=== PATIENT | male | born 1970 | race Caucasian/White ===

== ENCOUNTER 2017-03-01 21:45 | Emergency (ER) | payer MEDICARE, SELFPAY ==
[2017-03-01 21:58] VITALS: BP 160/102
--- NOTE | 2017-03-01 22:37 | EDM.PDOC ---
ED HPI GENERAL MEDICAL PROBLEM - General Chief Complaint: Upper Extremity Injury/Pain Stated Complaint: UNABLE TO SLEEP Time Seen by Provider: 03/01/17 22:10 Source of Information: Reports: Patient History Limitations: Reports: No Limitations - History of Present Illness INITIAL COMMENTS - FREE TEXT/NARRATIVE: 46-year-old male with a left shoulder injury, injured it twice in the last 5 days and is having significant discomfort. He is leaving for the [place] tomorrow morning for the next 5-10 days while his has important surgical procedure and he has a lot of anxiety and is having difficulty sleeping. He still has full range of motion of the shoulder but is very painful and difficult to raise the shoulder above 90. No symptoms going down the arm into the elbow or wrist. No bruising or deformity. Location: Reports: Upper Extremity, Left Severity: Mild Associated Symptoms: Reports: Other (Worsening anxiety) left shoulder Pain Score (Numeric/FACES): 3 - Related Data Allergies Allergy/AdvReac Type Severity Reaction Status Date / Time ibuprofen Allergy Abdominal Verified 03/01/17 21:56 Pain naproxen Allergy heart Verified 03/01/17 21:56 palpitations *all muscle relaxers Allergy makes Uncoded 03/01/17 21:56 mental illness worse Home Meds: Home Meds Lisinopril [Lisinopril] 20 mg PO DAILY 03/15/13 [History] Testosterone [Androgel] 75 mg TOP DAILY 03/15/13 [History] Zolpidem [Ambien] 5 mg PO BEDTIME 03/15/13 [History] amLODIPine Besylate [Amlodipine Besylate] 5 mg PO DAILY 03/15/13 [History] ALPRAZolam [Xanax] 1 mg PO QID 03/05/14 [History] Gemfibrozil [Lopid] 600 mg PO BID 03/05/14 [History] Dextroamphetamine/Amphetamine [Adderall 10 mg Tablet] 10 mg PO DAILY 03/01/17 [ History] Empagliflozin [Jardiance] 25 mg PO DAILY 03/01/17 [History] Past Medical History Other HEENT History: cornea abrasion Cardiovascular History: Reports: High Cholesterol, Hypertension Musculoskeletal History: Reports: Arthritis, Back Pain, Chronic Other Musculoskeletal History: 2002 power lifting hurt back- appt with pain in [place] on time. Psychiatric History: Reports: Anxiety, Panic Attack, Schizophrenia Other Psychiatric History: once used pain meds to medicate uncontrolled pyschophrenia but since on meds haven;t done that. Endocrine/Metabolic History: Reports: Diabetes, Type II Other Endocrine/Metabolic History: arthritis Social & Family History - Tobacco Use Smoking Status *Q: Current Every Day Smoker Years of Tobacco use: 25 Packs/Tins Daily: 0.2 Used Tobacco, but Quit: Yes Month Tobacco Last Used: 1998 Second Hand Smoke Exposure: No - Caffeine Use Caffeine Use: Reports: Coffee - Alcohol Use Days Per Week of Alcohol Use: 0 Number of Drinks Per Day: 5 Total Drinks Per Week: 0 - Recreational Drug Use Recreational Drug Use: No Recreational Drug Type: Reports: Other (see below) Recreational Drug Use Frequency: Not Used In Over 6 Months Recreational Drug Last Use: 2010 Review of Systems - Review of Systems Review Of Systems: See Below Constitutional: Denies: Fever Mouth/Throat: Reports: No Symptoms Respiratory: Denies: Shortness of Breath, Cough Cardiovascular: Denies: Chest Pain GI/Abdominal: Denies: Abdominal Pain Musculoskeletal: Reports: Shoulder Pain Skin: Reports: No Symptoms Psychiatric: Reports: Anxiety, Other (Insomnia) ED EXAM, GENERAL - Physical Exam Exam: See Below Exam Limited By: No Limitations General Appearance: Alert, No Apparent Distress, Anxious Neck: Normal Inspection Respiratory/Chest: No Respiratory Distress, Lungs Clear Extremities: Other (Very tender to palpation along the anterior glenoid rim of the shoulder and to the subclavian area. He does have full active range of motion but significant tenderness when abducting past 90. There is some apprehension with rotation of the shoulder passively) Course - Vital Signs Last Recorded V/S: Last Vital Signs Temp 97.0 F 03/01/17 22:02 Pulse 101 H 03/01/17 22:02 Resp 16 03/01/17 22:02 BP 160/102 H 03/01/17 22:02 Pulse Ox 97 03/01/17 22:02 - Re-Assessments/Exams Free Text/Narrative Re-Assessment/Exam: 03/01/17 22:36 Shoulder x-ray is not needed at this time since the patient is leaving tomorrow morning and likely will be normal but he was given 10 hydrocodone for extra pain control and will recheck when home if his symptoms are still bothering him. I told him it's important to rest the shoulder and refrain from weight lifting or stressing the shoulder for the next 1-2 weeks. Departure - Departure Time of Disposition: 22:45 Disposition: Home, Self-Care 01 Condition: Good Clinical Impression: Strain of shoulder, left Qualifiers: Encounter type: initial encounter Qualified Code(s): S46.912A - Strain of unspecified muscle, fascia and tendon at shoulder and upper arm level, left arm , initial encounter - Discharge Information Instructions: Shoulder Pain, [id number] Referrals: Florida Guerra PA [Primary Care Provider] - Forms: ED Department Discharge Care Plan Goals: Rest the shoulder for the next 1-2 weeks, increasing activity slowly and as tolerated. Recheck when you return home if not improving satisfactorily. Use medications as prescribed if needed.
== END 2017-03-01 22:45 | disposition home or self-care (01) ==
LOC: JP.ED 21:45
DX: S46.912A Strain of unspecified muscle, fascia and tendon at shoulder and upper arm level, left arm, initial encounter (principal); I10 Essential (primary) hypertension; E78.00 Pure hypercholesterolemia, unspecified; F41.9 Anxiety disorder, unspecified; F41.0 Panic disorder [episodic paroxysmal anxiety]; E11.9 Type 2 diabetes mellitus without complications; F17.210 Nicotine dependence, cigarettes, uncomplicated; Z79.84 Long term (current) use of oral hypoglycemic drugs; Z79.899 Other long term (current) drug therapy; Z88.6 Allergy status to analgesic agent; Z88.8 Allergy status to other drugs, medicaments and biological substances; X58.XXXA Exposure to other specified factors, initial encounter
CPT/HCPCS: 99283

== ENCOUNTER 2017-05-20 09:58 | Emergency (ER) | payer MEDICARE, OTHER, SELFPAY ==
[2017-05-20 10:27] VITALS: BP 133/88
[2017-05-20] MEDS ORDERED: Triamcinolone Acetonide 40 MG/ML 1 ML MDV IM ONE (10:45)
[2017-05-20] MEDS ORDERED: Acetaminophen/oxyCODONE 325-5 MG Tab PO ONE (10:46)
--- NOTE | 2017-05-20 10:54 | EDM.PDOC ---
ED HPI GENERAL MEDICAL PROBLEM - General Chief Complaint: Lower Extremity Injury/Pain Stated Complaint: HURT LT SHOULDER Time Seen by Provider: 05/20/17 10:45 Source of Information: Reports: Patient History Limitations: Reports: No Limitations - History of Present Illness INITIAL COMMENTS - FREE TEXT/NARRATIVE: pt was breaking up ice yesterday and he reinjured his left shoulder. He has been seeing Yodit Guerra and has had an Mri on the shoulder with does how a torn labrum and evidence of tendonitis. Onset: Gradual, Other (pt chopped ice yesterday and he reinjured his left shoulder. ) Duration: Hour(s): Location: Reports: Upper Extremity, Left Associated Symptoms: Reports: Other (pt is scheduled for a procedure on his veins. ) - Related Data Allergies Allergy/AdvReac Type Severity Reaction Status Date / Time ibuprofen Allergy Abdominal Verified 03/01/17 21:56 Pain naproxen Allergy heart Verified 03/01/17 21:56 palpitations *all muscle relaxers Allergy makes Uncoded 03/01/17 21:56 mental illness worse Home Meds: Home Meds Lisinopril [Lisinopril] 20 mg PO DAILY 03/15/13 [History] Testosterone [Androgel] 75 mg TOP DAILY 03/15/13 [History] Zolpidem [Ambien] 5 mg PO BEDTIME 03/15/13 [History] amLODIPine Besylate [Amlodipine Besylate] 5 mg PO DAILY 03/15/13 [History] ALPRAZolam [Xanax] 1 mg PO QID 03/05/14 [History] Gemfibrozil [Lopid] 600 mg PO BID 03/05/14 [History] Dextroamphetamine/Amphetamine [Adderall 10 mg Tablet] 10 mg PO DAILY 03/01/17 [ History] Empagliflozin [Jardiance] 25 mg PO DAILY 03/01/17 [History] Past Medical History Other HEENT History: cornea abrasion Cardiovascular History: Reports: High Cholesterol, Hypertension Musculoskeletal History: Reports: Arthritis, Back Pain, Chronic Other Musculoskeletal History: 2002 power lifting hurt back- appt with pain in [place] on time. Psychiatric History: Reports: Anxiety, Panic Attack, Schizophrenia Other Psychiatric History: once used pain meds to medicate uncontrolled pyschophrenia but since on meds haven;t done that. Endocrine/Metabolic History: Reports: Diabetes, Type II Other Endocrine/Metabolic History: arthritis - Past Surgical History Musculoskeletal Surgical History: Reports: Other (See Below) Other Musculoskeletal Surgeries/Procedures:: tendonits of left shoulder Social & Family History - Tobacco Use Smoking Status *Q: Former Smoker Years of Tobacco use: 30 Packs/Tins Daily: 0.2 Used Tobacco, but Quit: Yes Month Tobacco Last Used: february Second Hand Smoke Exposure: No - Caffeine Use Caffeine Use: Reports: Coffee - Alcohol Use Days Per Week of Alcohol Use: 0 Number of Drinks Per Day: 5 Total Drinks Per Week: 0 - Recreational Drug Use Recreational Drug Use: No Recreational Drug Type: Reports: Other (see below) Recreational Drug Use Frequency: Not Used In Over 6 Months Recreational Drug Last Use: 2010 Review of Systems - Review of Systems Review Of Systems: See Below Constitutional: Reports: No Symptoms Eyes: Reports: No Symptoms Ears: Reports: No Symptoms Nose: Reports: No Symptoms Mouth/Throat: Reports: No Symptoms Respiratory: Reports: No Symptoms Cardiovascular: Reports: No Symptoms GI/Abdominal: Reports: No Symptoms Musculoskeletal: Reports: Other ( Pain in the left shoulder. ) ED EXAM, GENERAL - Physical Exam Exam: See Below Free Text/Narrative:: Pt arrived with pain in the left shoulder after chopping ice. Exam Limited By: No Limitations General Appearance: Alert, Moderate Distress Ears: Normal TMs Nose: Normal Inspection Throat/Mouth: Normal Inspection Head: Atraumatic Neck: Normal Inspection Respiratory/Chest: No Respiratory Distress Cardiovascular: Regular Rate, Rhythm GI/Abdominal: Soft, Non-Tender Extremities: Other (pt is tender over the deltoid insertion. He is tender over the anterior portion of the shoulder. He is having difficulty lifting his left arm. He has had an MRI of the shoulder with a notable frayed labrum and tendonitis. ) Neurological: Alert, Oriented, Normal Cognition Psychiatric: Normal Affect Course - Vital Signs Last Recorded V/S: Last Vital Signs Temp 36.8 C 05/20/17 10:27 Pulse 106 H 05/20/17 10:27 Resp 14 05/20/17 10:27 BP 133/88 05/20/17 10:27 Pulse Ox 96 05/20/17 10:27 - Orders/Labs/Meds Meds: Medications Discontinued Medications Generic Name Dose Route Start Last Admin Trade Name Freq PRN Reason Stop Dose Admin Oxycodone/Acetaminophen 1 tab 05/20/17 10:46 Percocet 325-5 Mg PO 05/20/17 10:47 ONETIME ONE Triamcinolone Acetonide 60 mg 05/20/17 10:45 Kenalog-40 IM 05/20/17 10:46 ASDIRECTED ONE - Re-Assessments/Exams Free Text/Narrative Re-Assessment/Exam: 05/20/17 10:56 pt was given kenalog 60mg im, and percocet 5/325 Departure - Departure Time of Disposition: 10:57 Disposition: Home, Self-Care 01 Condition: Fair Clinical Impression: Tendonitis, Degenerative arthritis of left shoulder region - Discharge Information Referrals: [place] Guerra PA [Primary Care Provider] - Care Plan Goals: moist warm packs, avoid overuse, appt with Yodit Guerra next week, norco 5/325 q6h prn for pain #10
== END 2017-05-20 11:17 | disposition home or self-care (01) ==
LOC: JP.ED 09:58
DX: M19.012 Primary osteoarthritis, left shoulder (principal); M77.9 Enthesopathy, unspecified; E78.00 Pure hypercholesterolemia, unspecified; I10 Essential (primary) hypertension; E11.9 Type 2 diabetes mellitus without complications; Z87.891 Personal history of nicotine dependence; Z88.6 Allergy status to analgesic agent; Z79.899 Other long term (current) drug therapy; Z88.8 Allergy status to other drugs, medicaments and biological substances
CPT/HCPCS: 96372; 99284; A9270; J3301

== ENCOUNTER 2017-06-08 07:04 | Day surgery (SDC) | payer MEDICARE, OTHER, SELFPAY ==
[~2017-06-08 07:04] MED LIST: Lidocaine 1% with EPINEPHrine 1:100,000 50 ML MDV ONE; Sodium Chloride 0.9% 10 ML ONE; Sodium Tetradecyl Sulfate 1% 20 MG/2 ML SDV ONE
[2017-06-08] MEDS ORDERED: Lactated Ringers 1,000 ML IV SCH (07:30)
[2017-06-08] MEDS ORDERED: fentaNYL 100 MCG/2 ML SDV ONE (07:39)
[2017-06-08] MEDS ORDERED: Midazolam 1 MG/ML 2 ML SDV ONE ×3 (07:39→08:35)
[2017-06-08] MEDS ORDERED: Propofol 200 MG/20 ML SDV ONE ×5 (07:39→08:45)
[2017-06-08] MEDS: Lidocaine 1% w/EPINEPHrine 50 ML, Sodium Bicarbonate 5 MEQ in Sodium Chloride 0.9% 950 ML INJECT SCH ×2 (08:29→08:30)
[2017-06-08 10:00] VITALS: BP 141/81
--- NOTE | 2017-06-08 11:11 | OR ---
DATE OF PROCEDURE: 06/08/2017 PROCEDURES: 1. Radiofrequency ablation of left greater saphenous vein. 2. Radiofrequency ablation of right greater saphenous vein. 3. Sclerotherapy of left leg, multiple. 4. Sclerotherapy of right leg, multiple. 5. Compression wrapping, left leg, (17987). 6. Compression wrapping, right leg, ([id number]). COMPLICATIONS: None. PANEL FITTER: None. ANESTHESIA: MAC/local. PREOPERATIVE DIAGNOSIS: Venous/varicose vein insufficiency with inflammation and pain. POSTOPERATIVE DIAGNOSIS: Venous/varicose vein insufficiency with inflammation and pain. RISKS: Risks, benefits, alternatives, and limitations including, but not limited to infection, bleeding, perforation, and DVT formation were explained to the patient, and they wished to proceed. PROCEDURE IN DETAIL: The patient was placed in the supine position. The left GSV was accessed at the level of the ankle first. This was accessed via a 21-gauge needle, then a 35,000th wire, and then exchanged for a 7-[place] sheath. This was advanced to 3 cm from the saphenofemoral junction. Tumescent fluid was injected in a 1-cm jacket around this and verified a second and a third time. Direct even pressure was held as the probe was deployed x2 proximally and distally, and x1 in all other segments. The sheath and device were then removed, and Dermabond was applied after direct pressure was held for 10 minutes. The same procedure in the same manner, same fashion, same technique, same sequence, and using the same equipment was then performed on the right leg. Sclerotherapy was performed on the left and right legs. There were 8 on the left and 5 on the right. This was performed using 0.33% sodium tetradecyl. No more than 2 mL was injected in one location, this was always drawn back to ensure intravascular injection only. Compression wrapping was then performed on the left and right legs. This was performed in a 20-mmHg [id number] configuration in a two-stage wrap. The patient tolerated the procedure well. Khris Ahumada MD /[id number]
== END 2017-06-08 10:18 | disposition home or self-care (01) ==
LOC: JP.SDS 07:04
PROVIDERS: ATTEND Surgery
DX: I83.12 Varicose veins of left lower extremity with inflammation (principal); I83.11 Varicose veins of right lower extremity with inflammation; I83.813 Varicose veins of bilateral lower extremities with pain; I10 Essential (primary) hypertension; E11.9 Type 2 diabetes mellitus without complications; Z88.8 Allergy status to other drugs, medicaments and biological substances; Z88.6 Allergy status to analgesic agent
CPT/HCPCS: 76998; J1642; J2250; J2704; J3010; J3490; J7040; J7050; J7120

== ENCOUNTER 2017-07-19 08:24 | Emergency (ER) | payer MEDICARE ==
[2017-07-19 08:48] VITALS: BP 127/85
[2017-07-19] MEDS ORDERED: Ketorolac 60 MG/2 ML SDV IM ONE (09:39)
[2017-07-19] MEDS ORDERED: Acetaminophen/HYDROcodone 325-5 MG Tab PO ONE (09:40)
--- NOTE | 2017-07-19 09:46 | EDM.PDOC ---
ED HPI GENERAL MEDICAL PROBLEM - General Chief Complaint: Upper Extremity Injury/Pain Stated Complaint: LEFT SHOULDER PAIN Time Seen by Provider: 07/19/17 09:41 Source of Information: Reports: Patient History Limitations: Reports: No Limitations - History of Present Illness INITIAL COMMENTS - FREE TEXT/NARRATIVE: Pt arrived with severe pain in his left shoulder. He is in the midst of a pt program and gordon of the exercises are making it hurt worse. Onset: Gradual, Other ( The therapy is improving his mobility but he is having more pain. ) Duration: Day(s): Location: Reports: Upper Extremity, Left Associated Symptoms: Reports: No Other Symptoms Left Shoulder Pain Score (Numeric/FACES): 4 - Related Data Allergies Allergy/AdvReac Type Severity Reaction Status Date / Time ibuprofen Allergy Abdominal Verified 07/19/17 08:49 Pain naproxen Allergy heart Verified 07/19/17 08:49 palpitations *all muscle relaxers Allergy makes Uncoded 07/19/17 08:49 mental illness worse Home Meds: Home Meds Lisinopril 30 mg PO DAILY 03/15/13 [History] Testosterone [Androgel] 75 mg TOP DAILY 03/15/13 [History] Zolpidem [Ambien] 5 mg PO BEDTIME 03/15/13 [History] amLODIPine Besylate [Amlodipine Besylate] 5 mg PO DAILY 03/15/13 [History] ALPRAZolam [Xanax] 1 mg PO QID 03/05/14 [History] Gemfibrozil [Lopid] 600 mg PO BID 03/05/14 [History] Empagliflozin [Jardiance] 25 mg PO DAILY 03/01/17 [History] Cholecalciferol (Vitamin D3) [Vitamin D3] 5,000 unit PO DAILY 06/06/17 [History] [place] Carbonate 300 mg PO BEDTIME 06/06/17 [History] QUEtiapine [SEROquel] 0.5 - 2 tab PO BEDTIME 06/06/17 [History] atorvaSTATin [Lipitor] 10 mg PO BEDTIME 06/06/17 [History] Past Medical History HEENT History: Reports: None Other HEENT History: cornea abrasion Cardiovascular History: Reports: High Cholesterol, Hypertension Musculoskeletal History: Reports: Arthritis Other Musculoskeletal History: 2002 power lifting hurt back- appt with pain in [place] on - 1st time. Psychiatric History: Reports: Anxiety, Panic Attack, Schizophrenia Other Psychiatric History: once used pain meds to medicate uncontrolled pyschophrenia but since on meds haven;t done that. Endocrine/Metabolic History: Reports: Diabetes, Type II Other Endocrine/Metabolic History: arthritis - Infectious Disease History Infectious Disease History: Reports: Chicken Pox - Past Surgical History HEENT Surgical History: Reports: None Cardiovascular Surgical History: Reports: None Endocrine Surgical History: Reports: None Musculoskeletal Surgical History: Reports: Other (See Below) Other Musculoskeletal Surgeries/Procedures:: tendonits of left shoulder, right index finger tendon damage repaired Social & Family History - Tobacco Use Smoking Status *Q: Current Some Day Smoker Years of Tobacco use: 20 Packs/Tins Daily: 0.2 Used Tobacco, but Quit: No Month/Year Tobacco Last Used: february Hand Smoke Exposure: No - Caffeine Use Caffeine Use: Reports: Coffee - Alcohol Use Days Per Week of Alcohol Use: 0 Number of Drinks Per Day: 5 Total Drinks Per Week: 0 - Recreational Drug Use Recreational Drug Use: No Recreational Drug Type: Reports: Other (see below) Recreational Drug Use Frequency: Not Used In Over 6 Months Recreational Drug Last Use: 2010 Review of Systems - Review of Systems Review Of Systems: See Below Constitutional: Reports: No Symptoms Eyes: Reports: No Symptoms Ears: Reports: No Symptoms Nose: Reports: No Symptoms Mouth/Throat: Reports: No Symptoms Respiratory: Reports: No Symptoms Cardiovascular: Reports: No Symptoms GI/Abdominal: Reports: No Symptoms Musculoskeletal: Reports: Other (pain in the left shoulder. ) Skin: Reports: No Symptoms ED EXAM, GENERAL - Physical Exam Exam: See Below Free Text/Narrative:: pt arrived with acute pain in the left shoulder. He is receiving pt to improve the mobility in the shoulder. Exam Limited By: No Limitations General Appearance: Alert, Anxious, Mild Distress Extremities: Other (pt has tendrness over te left shoulder and is somewhat limited with his mobility) Course - Vital Signs Last Recorded V/S: Last Vital Signs Temp 37 C 07/19/17 08:47 Pulse 108 H 07/19/17 08:47 Resp 16 07/19/17 08:47 BP 127/85 07/19/17 08:47 Pulse Ox 97 07/19/17 08:47 - Orders/Labs/Meds Orders: Active Orders 24 hr Category Date Time Status Acetaminophen/HYDROcodone [[place] 325-5 MG] Med 07/19/17 09:40 Once 1 tab PO ONETIME ONE Meds: Medications Discontinued Medications Generic Name Dose Route Start Last Admin Trade Name Tristin PRN Reason Stop Dose Admin Ketorolac Tromethamine 60 mg 07/19/17 09:39 Toradol IM 07/19/17 09:40 ONETIME ONE - Re-Assessments/Exams Free Text/Narrative Re-Assessment/Exam: 07/19/17 09:44 pt was given torodol 60mg im and norco 5/325 Departure - Departure Time of Disposition: 09:45 Disposition: Home, Self-Care 01 Condition: Fair Clinical Impression: Tendonitis of shoulder, left - Discharge Information Referrals: Florida Guerra PA [Primary Care Provider] - Care Plan Goals: moist warm heat to shoulder, cont with the therapy, norco 5/325 q6h prn for pain. - My Orders Last 24 Hours: My Active Orders 07/19/17 09:40 Acetaminophen/HYDROcodone [[place] 325-5 MG] 1 tab PO ONETIME ONE - Assessment/Plan Last 24 Hours: My Active Orders 07/19/17 09:40 Acetaminophen/HYDROcodone [[place] 325-5 MG] 1 tab PO ONETIME ONE
== END 2017-07-19 10:19 | disposition home or self-care (01) ==
LOC: JP.ED 08:24
DX: M75.92 Shoulder lesion, unspecified, left shoulder (principal); E78.00 Pure hypercholesterolemia, unspecified; I10 Essential (primary) hypertension; E11.9 Type 2 diabetes mellitus without complications; F41.9 Anxiety disorder, unspecified; F17.210 Nicotine dependence, cigarettes, uncomplicated; Z88.6 Allergy status to analgesic agent; Z88.5 Allergy status to narcotic agent; Z79.899 Other long term (current) drug therapy
CPT/HCPCS: 96372; 99283; A9270; J1885

== ENCOUNTER 2017-08-19 17:15 | Emergency (ER) | payer MEDICARE ==
[2017-08-19 17:25] VITALS: BP 140/102
[2017-08-19] MEDS ORDERED: Lidocaine 4% Top Soln 50 ML Bottle MUCMEM ONE (17:51)
[2017-08-19] MEDS ORDERED: Acetaminophen/oxyCODONE 325-5 MG Tab PO ONE (17:51)
--- NOTE | 2017-08-19 17:55 | EDM.PDOC ---
ED HPI GENERAL MEDICAL PROBLEM - General Chief Complaint: ENT Problem Stated Complaint: LEFT SIDE TOOTH PAIN Time Seen by Provider: 08/19/17 17:52 Source of Information: Reports: Patient History Limitations: Reports: No Limitations - History of Present Illness INITIAL COMMENTS - FREE TEXT/NARRATIVE: pt arrived with painful teeth on the left upper and left lower. He has noted considerable increase in the pain in the last 2 days. he notes slight swelling at this time. Onset: Gradual Duration: Day(s): Location: Reports: Face Associated Symptoms: Reports: No Other Symptoms - Related Data Allergies Allergy/AdvReac Type Severity Reaction Status Date / Time ibuprofen Allergy Abdominal Verified 08/19/17 17:38 Pain naproxen Allergy heart Verified 08/19/17 17:38 palpitations *all muscle relaxers Allergy makes Uncoded 08/19/17 17:38 mental illness worse Home Meds: Home Meds Lisinopril 30 mg PO DAILY 03/15/13 [History] Testosterone [Androgel] 75 mg TOP DAILY 03/15/13 [History] Zolpidem [Ambien] 5 mg PO BEDTIME 03/15/13 [History] amLODIPine Besylate [Amlodipine Besylate] 5 mg PO DAILY 03/15/13 [History] ALPRAZolam [Xanax] 1 mg PO QID 03/05/14 [History] Gemfibrozil [Lopid] 600 mg PO BID 03/05/14 [History] Empagliflozin [Jardiance] 25 mg PO DAILY 03/01/17 [History] Cholecalciferol (Vitamin D3) [Vitamin D3] 5,000 unit PO DAILY 06/06/17 [History] [place] Carbonate 300 mg PO BEDTIME 06/06/17 [History] QUEtiapine [SEROquel] 0.5 - 2 tab PO BEDTIME 06/06/17 [History] atorvaSTATin [Lipitor] 10 mg PO BEDTIME 06/06/17 [History] Past Medical History HEENT History: Reports: None Other HEENT History: cornea abrasion Cardiovascular History: Reports: High Cholesterol, Hypertension Musculoskeletal History: Reports: Arthritis Other Musculoskeletal History: 2002 power lifting hurt back- appt with pain in [place] on 13- time. Psychiatric History: Reports: Anxiety, Panic Attack, Schizophrenia Other Psychiatric History: once used pain meds to medicate uncontrolled pyschophrenia but since on meds haven;t done that. Endocrine/Metabolic History: Reports: Diabetes, Type II Other Endocrine/Metabolic History: arthritis - Infectious Disease History Infectious Disease History: Reports: Chicken Pox - Past Surgical History HEENT Surgical History: Reports: None Cardiovascular Surgical History: Reports: None Endocrine Surgical History: Reports: None Musculoskeletal Surgical History: Reports: Other (See Below) Other Musculoskeletal Surgeries/Procedures:: tendonits of left shoulder, right index finger tendon damage repaired Social & Family History - Caffeine Use Caffeine Use: Reports: Coffee ED ROS ENT - Review of Systems Review Of Systems: See Below Constitutional: Reports: No Symptoms HEENT: Reports: No Symptoms, Dental Pain Respiratory: Reports: No Symptoms Cardiovascular: Reports: No Symptoms Endocrine: Reports: No Symptoms GI/Abdominal: Reports: No Symptoms : Reports: No Symptoms Musculoskeletal: Reports: No Symptoms Skin: Reports: No Symptoms ED EXAM, ENT - Physical Exam Exam: See Below Text/Narrative:: pt has pain in the left upper and left lower gum line. Exam Limited By: No Limitations General Appearance: Alert, Anxious Ears: Normal TMs Nose: Normal Inspection Mouth/Throat: Other ( Pt has very carious teeth in both the upper and the lower gum line. ) Head: Atraumatic Neck: Normal Inspection Respiratory/Chest: No Respiratory Distress Course - Vital Signs Last Recorded V/S: Last Vital Signs Temp 37.1 C 08/19/17 17:44 Pulse 108 H 08/19/17 17:44 Resp 16 08/19/17 17:44 BP 140/102 H 08/19/17 17:44 Pulse Ox 99 08/19/17 17:44 - Orders/Labs/Meds Meds: Medications Discontinued Medications Generic Name Dose Route Start Last Admin Trade Name Tristin PRN Reason Stop Dose Admin Lidocaine HCl 1 ml 08/19/17 17:51 Xylocaine 4% Top Soln MUCMEM 08/19/17 17:52 ONETIME ONE Oxycodone/Acetaminophen 1 tab 08/19/17 17:51 Percocet 325-5 Mg PO 08/19/17 17:52 ONETIME ONE - Re-Assessments/Exams Free Text/Narrative Re-Assessment/Exam: 08/19/17 18:03 4% lidocaine was applied. He was given percocet 5/325 . 08/19/17 18:04 Departure - Departure Time of Disposition: 17:52 Disposition: Home, Self-Care 01 Condition: Fair Clinical Impression: Tooth infection - Discharge Information Instructions: Dental Abscess, [id number] Referrals: [place] Guerra PA [Primary Care Provider] - Forms: ED Department Discharge Care Plan Goals: use 4% lidocaine to control the pain in the left gum line--apply packs, norco 5/ 325 q6h prn for severe pain #8, amoxicillin 500mg tid, dental referal monday to [facility].
== END 2017-08-19 18:27 | disposition home or self-care (01) ==
LOC: JP.ED 17:15
DX: K04.7 Periapical abscess without sinus (principal); K02.9 Dental caries, unspecified; I10 Essential (primary) hypertension; E11.9 Type 2 diabetes mellitus without complications; E78.00 Pure hypercholesterolemia, unspecified; M19.90 Unspecified osteoarthritis, unspecified site; Z79.899 Other long term (current) drug therapy; Z88.6 Allergy status to analgesic agent; Z88.8 Allergy status to other drugs, medicaments and biological substances
CPT/HCPCS: 99283; A9270

== ENCOUNTER 2017-11-05 12:21 | Emergency (ER) | payer MEDICARE ==
[2017-11-05 13:22] VITALS: BP 145/102
--- NOTE | 2017-11-05 13:53 | EDM.PDOC ---
ED HPI GENERAL MEDICAL PROBLEM - General Chief Complaint: Upper Extremity Injury/Pain Stated Complaint: SEVERE PAIN IN LEFT SHOULDER Time Seen by Provider: 11/05/17 13:35 Source of Information: Reports: Patient, Old Records History Limitations: Reports: No Limitations - History of Present Illness INITIAL COMMENTS - FREE TEXT/NARRATIVE: 47 yo male with chronic L shoulder pain presents with an exacerbation due to cleaning his gutters out this morning. Has not taken anything for pain alleging that he is allergic to ibuprofen/naproxen(heart palpitations). Has an appt on for a cortisone injection under fluoroscopy. No numbness down his L arm. Pain at rest, worse with movement. Onset: Unknown/Unsure Duration: Chronic, Getting Worse Location: Reports: Upper Extremity, Left Quality: Reports: Ache Severity: Moderate Improves with: Reports: Rest Worsens with: Reports: Movement Context: Reports: Exercise (see HPI) Associated Symptoms: Reports: No Other Symptoms Treatments NEW PRODUCT TRAINER: Reports: Other (see below) (none) Left Shoulder Pain Score (Numeric/FACES): 4 - Related Data Allergies Allergy/AdvReac Type Severity Reaction Status Date / Time ibuprofen Allergy Abdominal Verified 11/05/17 13:21 Pain naproxen Allergy heart Verified 11/05/17 13:21 palpitations *all muscle relaxers Allergy makes Uncoded 11/05/17 13:21 mental illness worse Home Meds: Home Meds Lisinopril 30 mg PO DAILY 03/15/13 [History] Testosterone [Androgel] 75 mg TOP DAILY 03/15/13 [History] Zolpidem [Ambien] 5 mg PO BEDTIME 03/15/13 [History] amLODIPine Besylate [Amlodipine Besylate] 5 mg PO DAILY 03/15/13 [History] ALPRAZolam [Xanax] 1 mg PO QID 03/05/14 [History] Empagliflozin [Jardiance] 25 mg PO DAILY 03/01/17 [History] Cholecalciferol (Vitamin D3) [Vitamin D3] 5,000 unit PO DAILY 06/06/17 [History] [place] Carbonate 300 mg PO BEDTIME 06/06/17 [History] QUEtiapine [SEROquel] 0.5 - 2 tab PO BEDTIME 06/06/17 [History] atorvaSTATin [Lipitor] 10 mg PO BEDTIME 06/06/17 [History] Past Medical History HEENT History: Reports: None Other HEENT History: cornea abrasion Cardiovascular History: Reports: High Cholesterol, Hypertension Musculoskeletal History: Reports: Arthritis, Other (See Below) Other Musculoskeletal History: 2002 power lifting hurt back- appt with pain in [place] on time. chronic left shoulder pain Psychiatric History: Reports: Anxiety, Panic Attack, Schizophrenia Other Psychiatric History: once used pain meds to medicate uncontrolled pyschophrenia but since on meds haven;t done that. Endocrine/Metabolic History: Reports: Diabetes, Type II Other Endocrine/Metabolic History: arthritis - Infectious Disease History Infectious Disease History: Reports: Chicken Pox - Past Surgical History HEENT Surgical History: Reports: None Cardiovascular Surgical History: Reports: None Endocrine Surgical History: Reports: None Musculoskeletal Surgical History: Reports: Other (See Below) Other Musculoskeletal Surgeries/Procedures:: tendonits of left shoulder, right index finger tendon damage repaired Social & Family History - Tobacco Use Smoking Status *Q: Former Smoker Used Tobacco, but Quit: Yes Month/Year Tobacco Last Used: 10 - Caffeine Use Caffeine Use: Reports: Coffee - Recreational Drug Use Recreational Drug Use: No Review of Systems - Review of Systems Review Of Systems: See Below Constitutional: Reports: No Symptoms Musculoskeletal: Reports: Shoulder Pain (left) Skin: Reports: No Symptoms Neurological: Reports: No Symptoms ED EXAM, GENERAL - Physical Exam Exam: See Below Exam Limited By: No Limitations General Appearance: Alert, WD/WN, No Apparent Distress Extremities: Normal Inspection, Normal Range of Motion, No Pedal Edema, Other ( tender over L subacromial bursal area and to the anterior deltoid just medial to the humeral head. ). No: Limited Range of Motion, Increased Warmth, Mottled , Redness Neurological: Alert, Oriented, CN II-XII Intact, Normal Cognition, No Motor/ Sensory Deficits Psychiatric: Normal Affect, Normal Mood Course - Vital Signs Text/Narrative:: Offered Celebrex and patient declined. Worried about allergy he states. Last Recorded V/S: Last Vital Signs Temp 36.2 C 11/05/17 13:15 Pulse 95 11/05/17 13:15 Resp 16 11/05/17 13:15 BP 145/102 H 11/05/17 13:15 Pulse Ox 96 11/05/17 13:15 Departure - Departure Time of Disposition: 13:52 Disposition: Home, Self-Care 01 Condition: Good Clinical Impression: Chronic pain in left shoulder - Discharge Information *PRESCRIPTION DRUG MONITORING PROGRAM REVIEWED*: No *COPY OF PRESCRIPTION DRUG MONITORING REPORT IN PATIENT LUIZ: No Instructions: Shoulder Pain Referrals: [place] Guerra PA [Primary Care Provider] - Additional Instructions: Use acetaminophen OR [place] for pain relief. Keep your appt for Monday for shoulder injection. F/U with your provider if more pain meds are needed. Consider Celebrex for your pain.
== END 2017-11-05 14:20 | disposition home or self-care (01) ==
LOC: JP.ED 12:21
DX: G89.29 Other chronic pain (principal); M25.512 Pain in left shoulder; I10 Essential (primary) hypertension; E11.9 Type 2 diabetes mellitus without complications; Z88.6 Allergy status to analgesic agent; Z87.891 Personal history of nicotine dependence
CPT/HCPCS: 99283

== ENCOUNTER 2017-11-11 15:00 | Emergency (ER) | payer MEDICARE ==
[2017-11-11 15:14] VITALS: BP 149/101
[2017-11-11] MEDS ORDERED: oxyCODONE 5 MG Tab PO ONE (15:35)
--- NOTE | 2017-11-11 15:46 | EDM.PDOC ---
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 Worsened with reaching around on the lawnmower No significant trauma Pain is achy, posterior shoulder, worse with movement, doesn't radiate, severe - Related Data Allergies Allergy/AdvReac Type Severity Reaction Status Date / Time ibuprofen Allergy Abdominal Verified 11/11/17 15:18 Pain naproxen Allergy heart Verified 11/11/17 15:18 palpitations *all muscle relaxers Allergy makes Uncoded 11/11/17 15:18 mental illness worse Home Meds: Home Meds Lisinopril 30 mg PO DAILY 03/15/13 [History] Testosterone [Androgel] 75 mg TOP DAILY 03/15/13 [History] Zolpidem [Ambien] 5 mg PO BEDTIME 03/15/13 [History] amLODIPine Besylate [Amlodipine Besylate] 5 mg PO DAILY 03/15/13 [History] ALPRAZolam [Xanax] 1 mg PO QID 03/05/14 [History] Cholecalciferol (Vitamin D3) [Vitamin D3] 5,000 unit PO DAILY 06/06/17 [History] [place] Carbonate 300 mg PO BEDTIME 06/06/17 [History] QUEtiapine [SEROquel] 0.5 - 2 tab PO BEDTIME 06/06/17 [History] atorvaSTATin [Lipitor] 10 mg PO BEDTIME 06/06/17 [History] Dextroamphetamine/Amphetamine [Adderall 10 mg Tablet] 10 mg PO DAILY 11/07/17 [ History] Empagliflozin [Jardiance] 25 mg PO DAILY 11/07/17 [History] Gemfibrozil [Lopid] 600 mg PO DAILY 11/07/17 [History] oxyCODONE 5 mg PO Q4H PRN #4 tab 11/11/17 [Rx] Past Medical History HEENT History: Reports: None Other HEENT History: cornea abrasion Cardiovascular History: Reports: High Cholesterol, Hypertension Musculoskeletal History: Reports: Arthritis, Other (See Below) Other Musculoskeletal History: 2002 power lifting hurt back- appt with pain in [place] on time. chronic left shoulder pain Psychiatric History: Reports: Anxiety, Panic Attack, Schizophrenia Other Psychiatric History: once used pain meds to medicate uncontrolled pyschophrenia but since on meds haven;t done that. Endocrine/Metabolic History: Reports: Diabetes, Type II Other Endocrine/Metabolic History: arthritis - Infectious Disease History Infectious Disease History: Reports: Chicken Pox - Past Surgical History HEENT Surgical History: Reports: None Cardiovascular Surgical History: Reports: None Endocrine Surgical History: Reports: None Musculoskeletal Surgical History: Reports: Other (See Below) Other Musculoskeletal Surgeries/Procedures:: tendonits of left shoulder, right index finger tendon damage repaired Social & Family History - Caffeine Use Caffeine Use: Reports: Coffee Review of Systems - Review of Systems Review Of Systems: See Below Constitutional: Reports: No Symptoms Eyes: Reports: No Symptoms Ears: Reports: No Symptoms Nose: Reports: No Symptoms Mouth/Throat: Reports: No Symptoms Respiratory: Reports: No Symptoms Cardiovascular: Reports: No Symptoms GI/Abdominal: Reports: No Symptoms Genitourinary: Reports: No Symptoms Musculoskeletal: Reports: Shoulder Pain Skin: Reports: No Symptoms Neurological: Reports: No Symptoms Psychiatric: Reports: No Symptoms ED EXAM, GENERAL - Physical Exam Exam: See Below Exam Limited By: No Limitations General Appearance: Alert, No Apparent Distress Ears: Normal External Exam Nose: Normal Inspection Head: Atraumatic, Normocephalic Neck: Supple, Non-Tender Respiratory/Chest: No Respiratory Distress, Lungs Clear Cardiovascular: Regular Rate, Rhythm GI/Abdominal: Soft, Non-Tender Back Exam: Normal Inspection Extremities: Other (diffuse tenderness posterior shoulder, no swelling or deformity, pain exacerbated with external rotation) Course - Vital Signs Last Recorded V/S: Last Vital Signs Temp 36.2 C 11/11/17 15:24 Pulse 107 H 11/11/17 15:24 Resp 16 11/11/17 15:24 BP 149/101 H 11/11/17 15:24 Pulse Ox 96 11/11/17 15:24 - Orders/Labs/Meds Meds: Medications Discontinued Medications Generic Name Dose Route Start Last Admin Trade Name Freq PRN Reason Stop Dose Admin Oxycodone HCl 5 mg 11/11/17 15:35 11/11/17 15:52 Oxycodone PO 11/11/17 15:36 5 mg ONETIME ONE Administration - Re-Assessments/Exams Free Text/Narrative Re-Assessment/Exam: Acute on chronic left shoulder pain, secondary to degenerative disease which has been imaged by MR No trauma Exam consistent with known disease Asking for pain medication - script for #4 oxycodone Instructed to follow up with PCP and attempt limit ED visits for exacerbation of chronic pain. Reviewed OFFICE TECHNICIAN - only recent script for narcotics was earlier this week here. Does have hx of substance abuse Discharged. 11/11/17 16:34 Departure - Departure Time of Disposition: 15:41 Disposition: Home, Self-Care 01 Condition: Good Clinical Impression: Left shoulder pain - Discharge Information *PRESCRIPTION DRUG MONITORING PROGRAM REVIEWED*: Yes *COPY OF PRESCRIPTION DRUG MONITORING REPORT IN PATIENT LUIZ: Yes Prescriptions: oxyCODONE 5 mg PO Q4H PRN #4 tab PRN Reason: Pain Instructions: Shoulder Pain, Shoulder Pain, [id number] Referrals: [place] Guerra PA [Primary Care Provider] - Forms: ED Department Discharge Additional Instructions: Please make a close follow up appointment with your primary doctor for further pain management We recommend working through your primary doctor rather than returning to the ER for management of your chronic shoulder pain
== END 2017-11-11 15:56 | disposition home or self-care (01) ==
LOC: JP.ED 15:00
DX: M25.512 Pain in left shoulder (principal); I10 Essential (primary) hypertension; E11.9 Type 2 diabetes mellitus without complications; E78.00 Pure hypercholesterolemia, unspecified; F41.9 Anxiety disorder, unspecified; Z79.899 Other long term (current) drug therapy; Z88.6 Allergy status to analgesic agent; Z88.8 Allergy status to other drugs, medicaments and biological substances
CPT/HCPCS: 99283; A9270

== ENCOUNTER 2018-05-18 11:29 | Emergency (ER) | payer MEDICARE ==
[2018-05-18 11:59] VITALS: BP 143/91
--- NOTE | 2018-05-18 12:48 | EDM.PDOC ---
ED HPI GENERAL MEDICAL PROBLEM - General Chief Complaint: Upper Extremity Injury/Pain Stated Complaint: ARTHRITIS, SHOULDERS Time Seen by Provider: 05/18/18 12:27 Source of Information: Reports: Patient History Limitations: Reports: No Limitations - History of Present Illness INITIAL COMMENTS - FREE TEXT/NARRATIVE: This man comes in for bilateral shoulder pain. He just came back from physical therapy. Previously he was diagnosed with the right sided rotator cuff syndrome but most recently he's been told he has arthritis in both shoulders. Some of the physical therapy routine has recently been changed. He's having a lot of pain after just doing the physical therapy earlier today. He did say that previously some rotator cuff exercises were helping. He's asking for a little bit of pain medication. He does have some tramadol at home but it's not working very well. He previously took some Narco so he is aware of the side effects and precautions. Bilateral Upper Shoulder Pain Score (Numeric/FACES): 7 - Related Data Allergies Allergy/AdvReac Type Severity Reaction Status Date / Time ibuprofen Allergy Abdominal Verified 05/18/18 12:01 Pain naproxen Allergy heart Verified 05/18/18 12:01 palpitations *all muscle relaxers Allergy makes Uncoded 05/18/18 12:01 mental illness worse Home Meds: Home Meds Lisinopril 30 mg PO DAILY 03/15/13 [History] Testosterone [Androgel] 75 mg TOP DAILY 03/15/13 [History] Zolpidem [Ambien] 5 mg PO BEDTIME 03/15/13 [History] amLODIPine Besylate [Amlodipine Besylate] 5 mg PO DAILY 03/15/13 [History] ALPRAZolam [Xanax] 1 mg PO QID 03/05/14 [History] Cholecalciferol (Vitamin D3) [Vitamin D3] 5,000 unit PO DAILY 06/06/17 [History] [place] Carbonate 300 mg PO BEDTIME 06/06/17 [History] QUEtiapine [SEROquel] 0.5 - 2 tab PO BEDTIME 06/06/17 [History] atorvaSTATin [Lipitor] 10 mg PO BEDTIME 06/06/17 [History] Empagliflozin [Jardiance] 25 mg PO DAILY 11/07/17 [History] Gemfibrozil [Lopid] 600 mg PO DAILY 11/07/17 [History] traMADol HCl [Tramadol HCl] 50 mg PO TID 05/18/18 [History] Past Medical History HEENT History: Reports: None Other HEENT History: cornea abrasion Cardiovascular History: Reports: High Cholesterol, Hypertension Gastrointestinal History: Reports: Diverticulosis Other Gastrointestinal History: Past hx of divaticulitis recent Musculoskeletal History: Reports: Arthritis, Other (See Below) Other Musculoskeletal History: 2002 power lifting hurt back- appt with pain in [place] on - time. chronic left shoulder pain now right shoulder Psychiatric History: Reports: Anxiety, Panic Attack, Schizophrenia Other Psychiatric History: once used pain meds to medicate uncontrolled pyschophrenia but since on meds haven;t done that. Endocrine/Metabolic History: Reports: Diabetes, Type II Other Endocrine/Metabolic History: arthritis - Infectious Disease History Infectious Disease History: Reports: Chicken Pox, Measles, Mumps - Past Surgical History HEENT Surgical History: Reports: None Cardiovascular Surgical History: Reports: None Endocrine Surgical History: Reports: None Musculoskeletal Surgical History: Reports: Other (See Below) Other Musculoskeletal Surgeries/Procedures:: tendonits of left shoulder, right index finger tendon damage repaired Social & Family History - Caffeine Use Caffeine Use: Reports: Coffee, Tea - Recreational Drug Use Recreational Drug Use: No Review of Systems - Review of Systems Review Of Systems: ROS reveals no pertinent complaints other than HPI. ED EXAM, GENERAL - Physical Exam Exam: See Below Exam Limited By: No Limitations General Appearance: Alert, Mild Distress, Obese Extremities: Other (There is some mild tenderness to the anterior aspect of the joint capsule on the right shoulder he's got some limited range of motion due to pain. Neurovascular tendon is all intact.) Course - Vital Signs Last Recorded V/S: Last Vital Signs Temp 35.2 C L 05/18/18 12:06 Pulse 80 05/18/18 12:06 Resp 16 05/18/18 12:06 BP 143/91 H 05/18/18 12:06 Pulse Ox 98 05/18/18 12:06 - Re-Assessments/Exams Free Text/Narrative Re-Assessment/Exam: 05/18/18 12:44 Sounds like he has 2 different diagnosis and the shoulder some degenerative changes on left and may be due to degenerative changes and rotator cuff syndrome on the right. I did force his right elbow distally that is appropriate in and attention that "the space between the acromion and the humeral head and then extubated feel quite a bit better. I demonstrated to internal and external resisted rotation of the humerus as I think that's probably the best exercise for him right now in addition to his physical therapy he has done this before in the past he said it helped. I demonstrated the anatomical relationships that are associated with rotator cuff syndrome and its treatment. Departure - Departure Time of Disposition: 12:46 Disposition: Home, Self-Care 01 Condition: Fair Clinical Impression: Bilateral shoulder pain - Discharge Information Referrals: [place] Guerra PA [Primary Care Provider] - Additional Instructions: Take Narco 5/325 (#20 tablets) one or 2 every 4 hours as needed for pain. This medication can cause sedation and can lead to addiction if taken continuously. I recommended take the smallest amount that is effective. Try doing the rotator cuff exercises on your right shoulder and see if that helps some. Follow-up with your doctor as planned and continue physical therapy.
== END 2018-05-18 13:16 | disposition home or self-care (01) ==
LOC: JP.ED 11:29
DX: M25.511 Pain in right shoulder (principal); M25.512 Pain in left shoulder; I10 Essential (primary) hypertension; E78.00 Pure hypercholesterolemia, unspecified; Z79.899 Other long term (current) drug therapy; E11.9 Type 2 diabetes mellitus without complications; Z88.6 Allergy status to analgesic agent; Z88.8 Allergy status to other drugs, medicaments and biological substances
CPT/HCPCS: 99283

== ENCOUNTER 2018-06-09 11:40 | Emergency (ER) | payer MEDICARE ==
[2018-06-09 13:20] VITALS: BP 160/96
--- NOTE | 2018-06-09 13:59 | EDM.PDOC ---
<David Wilcox - Last Filed: 06/09/18 14:52> ED HPI GENERAL MEDICAL PROBLEM - General Chief Complaint: Upper Extremity Injury/Pain Stated Complaint: PAIN IN RIGHT SHOULDER Time Seen by Provider: 06/09/18 13:45 - Related Data Allergies Allergy/AdvReac Type Severity Reaction Status Date / Time ibuprofen Allergy Abdominal Verified 06/09/18 11:53 Pain naproxen Allergy heart Verified 06/09/18 11:53 palpitations *all muscle relaxers Allergy makes Uncoded 06/09/18 11:53 mental illness worse Home Meds: Home Meds Lisinopril 30 mg PO DAILY 03/15/13 [History] Testosterone [Androgel] 75 mg TOP DAILY 03/15/13 [History] Zolpidem [Ambien] 5 mg PO BEDTIME 03/15/13 [History] amLODIPine Besylate [Amlodipine Besylate] 5 mg PO DAILY 03/15/13 [History] ALPRAZolam [Xanax] 1 mg PO QID 03/05/14 [History] Cholecalciferol (Vitamin D3) [Vitamin D3] 5,000 unit PO DAILY 06/06/17 [History] [place] Carbonate 300 mg PO BEDTIME 06/06/17 [History] QUEtiapine [SEROquel] 0.5 - 2 tab PO BEDTIME 06/06/17 [History] atorvaSTATin [Lipitor] 10 mg PO BEDTIME 06/06/17 [History] Empagliflozin [Jardiance] 25 mg PO DAILY 11/07/17 [History] Gemfibrozil [Lopid] 600 mg PO DAILY 11/07/17 [History] oxyCODONE HCl [Roxicodone] 5 mg PO Q4HR #4 tablet 06/09/18 [Rx] Course - Vital Signs Last Recorded V/S: Last Vital Signs Temp 35.5 C 06/09/18 11:56 Pulse 111 H 06/09/18 11:56 Resp 16 06/09/18 11:56 BP 160/96 H 06/09/18 11:56 Pulse Ox 96 06/09/18 11:56 Departure - Departure Time of Disposition: 14:52 Disposition: Home, Self-Care 01 Clinical Impression: Shoulder pain - Discharge Information *PRESCRIPTION DRUG MONITORING PROGRAM REVIEWED*: No *COPY OF PRESCRIPTION DRUG MONITORING REPORT IN PATIENT LUIZ: No Prescriptions: oxyCODONE HCl [Roxicodone] 5 mg PO Q4HR #4 tablet Instructions: Shoulder Pain, [id number] Referrals: PCP,None [Primary Care Provider] - Forms: ED Department Discharge Additional Instructions: Please follow up with ortho on Monday <[email or web address] Lopez - Last Filed: 06/11/18 10:34> ED HPI GENERAL MEDICAL PROBLEM - General Source of Information: Reports: Patient History Limitations: Reports: No Limitations - History of Present Illness Onset: Gradual (had steroid injection yesterday to right shoulder. Increased pain overnight and now rates pain at 6 with movement and 4 at rest. ) Quality: Reports: Dull, Stabbing (with movement) Treatments NURSING CLINICAL DIRECTOR: Reports: Other (see below) (has not tried anything for pain) Right Shoulder Pain Score (Numeric/FACES): 6 Past Medical History HEENT History: Reports: None Other HEENT History: cornea abrasion Cardiovascular History: Reports: High Cholesterol, Hypertension Gastrointestinal History: Reports: Diverticulosis Other Gastrointestinal History: Past hx of divaticulitis recent Musculoskeletal History: Reports: Arthritis, Other (See Below) Other Musculoskeletal History: 2002 power lifting hurt back- appt with pain in [place] on - time. chronic left shoulder pain now right shoulder Psychiatric History: Reports: Anxiety, Panic Attack, Schizophrenia Other Psychiatric History: once used pain meds to medicate uncontrolled pyschophrenia but since on meds haven;t done that. Endocrine/Metabolic History: Reports: Diabetes, Type II, Obesity/BMI 30+ Other Endocrine/Metabolic History: arthritis - Infectious Disease History Infectious Disease History: Reports: Chicken Pox - Past Surgical History Head Surgeries/Procedures: Reports: None HEENT Surgical History: Reports: None Cardiovascular Surgical History: Reports: None GI Surgical History: Reports: None Endocrine Surgical History: Reports: None Musculoskeletal Surgical History: Reports: Other (See Below) Other Musculoskeletal Surgeries/Procedures:: tendonits of left shoulder, right index finger tendon damage repaired Dermatological Surgical History: Reports: None Social & Family History - Tobacco Use Smoking Status *Q: Former Smoker Used Tobacco, but Quit: Yes Month/Year Tobacco Last Used: 2002 - Caffeine Use Caffeine Use: Reports: Coffee - Recreational Drug Use Recreational Drug Use: No Review of Systems - Review of Systems Review Of Systems: ROS reveals no pertinent complaints other than HPI. Musculoskeletal: Reports: Shoulder Pain (states has tears to rototor cuff seen on MRI. Ortho suggested steroid injection and PT x three months and to then return for reevaluation. ) ED EXAM, GENERAL - Physical Exam Exam: See Below Exam Limited By: No Limitations General Appearance: Alert, WD/WN, No Apparent Distress ( ) Extremities: Arm Pain (right shoulder. ) Neurological: Alert, Oriented, Normal Cognition, Normal Gait Psychiatric: Normal Affect, Normal Mood Skin Exam: Warm, Dry, Intact, Normal Color - Problem List Review Problem List Initiated/Reviewed/Updated: Yes
== END 2018-06-09 14:45 | disposition home or self-care (01) ==
LOC: JP.ED 11:40
DX: M25.511 Pain in right shoulder (principal); I10 Essential (primary) hypertension; E78.00 Pure hypercholesterolemia, unspecified; F41.9 Anxiety disorder, unspecified; Z79.899 Other long term (current) drug therapy; Z87.891 Personal history of nicotine dependence; Z88.6 Allergy status to analgesic agent; Z88.8 Allergy status to other drugs, medicaments and biological substances
CPT/HCPCS: 99283

== ENCOUNTER 2019-08-19 06:52 | Day surgery (SDC) | payer MEDICARE ==
[2019-08-19] MEDS ORDERED: Propofol 200 MG/20 ML SDV ONE ×2 (07:24→09:00)
[2019-08-19] MEDS ORDERED: fentaNYL 100 MCG/2 ML SDV ONE (07:24)
[2019-08-19] MEDS ORDERED: Midazolam 1 MG/ML 2 ML SDV ONE (07:25)
[2019-08-19] MEDS ORDERED: Sodium Chloride 0.9% 1,000 ML IV SCH (07:45)
[2019-08-19 10:01] VITALS: PULSE 82
[2019-08-19 10:02] VITALS: BP 144/83
--- NOTE | 2019-08-20 07:16 | OR ---
DATE OF PROCEDURE: 08/19/2019 SURGEON: Khris Ahumada MD PROCEDURE: Colonoscopy. FINDINGS: Transverse colon polyp, approximately 5 mm, completely removed using cold biopsy forceps. COMPLICATIONS: None. HOSPITAL ACCOUNT MANAGER: None. ANESTHESIA: MAC. PREOPERATIVE DIAGNOSIS: Screening colonoscopy. POSTOPERATIVE DIAGNOSIS: Screening colonoscopy. RISKS: Risks, benefits, alternatives, and limitations including, but not limited to, infection, bleeding, and perforation were explained to the patient, who wished to proceed. PROCEDURE IN DETAIL: The patient was placed in left lateral decubitus position. A digital rectal exam was performed without abnormality. Scope was introduced and advanced atraumatically to the ileocecal valve. The scope was brought back through the ascending, transverse, descending colon, and retroflexed. The aforementioned polyp was identified and completely removed. No evidence of old or new blood. No other polyps, no masses. No abnormalities on retroflex. The patient tolerated the procedure well. Khris Ahumada MD /[id number]
== END 2019-08-19 10:19 | disposition home or self-care (01) ==
LOC: JP.SDS 06:52
PROVIDERS: ATTEND Surgery
DX: Z12.11 Encounter for screening for malignant neoplasm of colon (principal); D12.3 Benign neoplasm of transverse colon; E11.9 Type 2 diabetes mellitus without complications
CPT/HCPCS: 45380; 88305; J2250; J2704; J3010; J7030

== ENCOUNTER 2020-07-31 06:20 | Emergency (ER) | payer MEDICARE ==
[2020-07-31 06:40] VITALS: BP 130/77; PULSE 115
--- NOTE | 2020-07-31 06:46 | EDM.PDOC ---
ED HPI GENERAL MEDICAL PROBLEM - General Chief Complaint: ENT Problem Stated Complaint: ABCESS TOOTH Time Seen by Provider: 07/31/20 06:39 Source of Information: Reports: Patient History Limitations: Reports: No Limitations - History of Present Illness INITIAL COMMENTS - FREE TEXT/NARRATIVE: Kip is a 50-year-old male presenting to the ED for evaluation of possible dental abscess. Patient reportedly has been taking some old penicillin that he had at home for the last couple of days. His pain is improved but his swelling has worsened. - Related Data Allergies Allergy/AdvReac Type Severity Reaction Status Date / Time cyclobenzaprine Allergy Other Verified 07/31/20 06:30 [From Flexeril] ibuprofen Allergy Abdominal Verified 07/31/20 06:30 Pain naproxen Allergy heart Verified 07/31/20 06:30 palpitations *all muscle relaxers Allergy makes Uncoded 07/31/20 06:30 mental illness worse Home Meds: Home Meds Lisinopril 30 mg PO DAILY 03/15/13 [History] amLODIPine Besylate [Amlodipine Besylate] 5 mg PO DAILY 03/15/13 [History] ALPRAZolam [Xanax] 1 mg PO QID 03/05/14 [History] Cholecalciferol (Vitamin D3) [Vitamin D3] 5,000 unit PO DAILY 06/06/17 [History] QUEtiapine [SEROquel] 50 mg PO BEDTIME 06/06/17 [History] atorvaSTATin [Lipitor] 10 mg PO BEDTIME 06/06/17 [History] Empagliflozin [Jardiance] 25 mg PO DAILY 11/07/17 [History] gemfibroziL [Lopid] 600 mg PO DAILY 11/07/17 [History] Aspirin [Children's Aspirin] 81 mg PO DAILY 10/15/18 [History] Buprenorphine HCl/Naloxone HCl [Buprenorp-Nalox 8-2 mg Sl Film] 1 each SL DAILY 10/15/18 [History] Naloxone HCl [Narcan] 4 mg NS ASDIRECTED 05/09/19 [History] Past Medical History HEENT History: Reports: Other (See Below) Other HEENT History: cornea abrasion Cardiovascular History: Reports: High Cholesterol, Hypertension Gastrointestinal History: Reports: Diverticulosis Other Gastrointestinal History: Past hx of divaticulitis recent Musculoskeletal History: Reports: Arthritis, Other (See Below) Other Musculoskeletal History: 2002 power lifting hurt back- appt with pain in [place] on time. chronic left shoulder pain now right shoulder Psychiatric History: Reports: Anxiety, Panic Attack, Schizophrenia Other Psychiatric History: once used pain meds to medicate uncontrolled pyschophrenia but since on meds haven;t done that. Endocrine/Metabolic History: Reports: Diabetes, Type II, Obesity/BMI 30+ Other Endocrine/Metabolic History: arthritis - Infectious Disease History Infectious Disease History: Reports: Chicken Pox - Past Surgical History Head Surgeries/Procedures: Reports: None HEENT Surgical History: Reports: None Cardiovascular Surgical History: Reports: None GI Surgical History: Reports: None Endocrine Surgical History: Reports: None Musculoskeletal Surgical History: Reports: Other (See Below) Other Musculoskeletal Surgeries/Procedures:: tendonits of left shoulder, right index finger tendon damage repaired Dermatological Surgical History: Reports: None Social & Family History - Tobacco Use Tobacco Use Status *Q: Current Every Day Tobacco User Years of Tobacco use: 30 Packs/Tins Daily: 0.1 - Caffeine Use Caffeine Use: Reports: Coffee - Recreational Drug Use Recreational Drug Use: Yes Drug Use in Last 12 Months: No Other Recreational Drug Type: opiates Recreational Drug Use Frequency: Not Used In Over 6 Months ED ROS ENT - Review of Systems Review Of Systems: See Below Constitutional: Reports: No Symptoms HEENT: Reports: Dental Pain, Other (Right jaw swelling) Respiratory: Reports: No Symptoms Cardiovascular: Reports: No Symptoms ED EXAM, ENT - Physical Exam Exam: See Below Exam Limited By: No Limitations General Appearance: Alert, No Apparent Distress Mouth/Throat: Dental Pain, Dental Tenderness (Tooth #29 has a deep dental caries into the pulp at the gingival line. There is significant gingivitis.), Gum Swelling Head: Facial Swelling (Swelling of the right mandible), Facial Tenderness (Right lower jaw tenderness) Neck: Lymphadenopathy (R) (Right submental and anterior cervical adenopathy) Departure - Departure Time of Disposition: 06:52 Disposition: Home, Self-Care 01 Clinical Impression: Dental abscess - Discharge Information Instructions: Dental Abscess, [id number] Referrals: [place] Guerra PA [Primary Care Provider] - Care Plan Goals: We are putting you on clindamycin 300 mg (2 capsules) 3 times a day for 7 days. Your prescription is for a total of 60 tablets but she will only need to take 42. Please follow-up with a dentist as this tooth will need to be addressed to prevent further reinfection. - Problem List & Annotations (1) Dental abscess SNOMED Code(s): 717336857 Code(s): K04.7 - PERIAPICAL ABSCESS WITHOUT SINUS Status: Acute Priority: Low Current Visit: Yes - Problem List Review Problem List Initiated/Reviewed/Updated: Yes
== END 2020-07-31 06:54 | disposition home or self-care (01) ==
LOC: JP.ED 06:20
DX: K04.7 Periapical abscess without sinus (principal); E11.9 Type 2 diabetes mellitus without complications; E78.00 Pure hypercholesterolemia, unspecified; I10 Essential (primary) hypertension; M19.90 Unspecified osteoarthritis, unspecified site; Z79.82 Long term (current) use of aspirin; Z88.8 Allergy status to other drugs, medicaments and biological substances; Z88.6 Allergy status to analgesic agent; Z79.899 Other long term (current) drug therapy
CPT/HCPCS: 99282; 99283

== ENCOUNTER 2022-03-06 13:51 | Emergency (ER) | payer MEDICARE ==
[2022-03-06 14:01] VITALS: BP 140/77; PULSE 94
== END 2022-03-06 14:23 | disposition home or self-care (01) ==
LOC: JP.ED 13:51
DX: J01.00 Acute maxillary sinusitis, unspecified (principal); E78.00 Pure hypercholesterolemia, unspecified; I10 Essential (primary) hypertension; E11.9 Type 2 diabetes mellitus without complications; F17.210 Nicotine dependence, cigarettes, uncomplicated; E66.9 Obesity, unspecified; Z68.38 Body mass index [BMI] 38.0-38.9, adult; Z88.6 Allergy status to analgesic agent; Z88.8 Allergy status to other drugs, medicaments and biological substances; Z79.899 Other long term (current) drug therapy; Z79.82 Long term (current) use of aspirin
CPT/HCPCS: 99283

== ENCOUNTER 2022-09-10 13:13 | Emergency (ER) | payer MEDICARE ==
[2022-09-10 14:00] VITALS: BP 116/72; PULSE 95
[2022-09-10 14:27] LABS: BASOPHILS ABSOLUTE AUTO 0.08 K/uL (0.00-0.10); BASOPHILS PERCENT AUTO 0.5 % (0.1-1.3); EOSINOPHILS ABSOLUTE AUTO 0.15 K/uL (0.00-0.40); HEMATOCRIT 45.3 % (38.4-49.7); HEMOGLOBIN 16.8 g/dL (12.9-16.9); IMMATURE GRAN ABSOLUTE AUTO 0.18 K/uL (0.00-0.23); IMMATURE GRAN PERCENT AUTO 1.2 % (0.0-0.7); LYMPHOCYTES ABSOLUTE AUTO 2.59 K/uL (0.8-3.3); MEAN CORPUSCULAR HEMOGLOBIN 30.5 pg (31.6-35.5); MEAN CORPUSCULAR HGB CONC 37.1 g/dL (31.6-35.5); MEAN CORPUSCULAR VOLUME 82.2 fL (81.4-99.0); MONOCYTES ABSOLUTE AUTO 1.32 K/uL (0.20-0.90); MONOCYTES PERCENT AUTO 8.7 % (3.3-12.6); NEUTROPHILS PERCENT AUTO 71.6 % (40.0-78.1); PLATELET COUNT,PLT 329 K/uL (130-375); RED BLOOD CELL COUNT 5.51 M/uL (4.14-5.76); WHITE BLOOD CELL COUNT,WBC 15.2 K/uL (3.2-11.0)
[2022-09-10 14:52] LABS: APPEARANCE,URINE CLEAR (CLEAR); BILIRUBIN,URINE NEGATIVE (NEGATIVE); COLOR,URINE YELLOW (YELLOW); GLUCOSE,URINE 500 mg/dL (NEGATIVE); KETONES,URINE NEGATIVE (NEGATIVE); LEUKOCYTE ESTERASE,URINE NEGATIVE (NEGATIVE); NITRITE,URINE NEGATIVE (NEGATIVE); OCCULT BLOOD,URINE NEGATIVE (NEGATIVE); PH,URINE 5.5 (5.0-8.0); PROTEIN,URINE NEGATIVE (NEGATIVE); UROBILINOGEN,URINE 0.2 EU/dL (0.2-1.0)
[2022-09-10 14:56] LABS: ALANINE AMINOTRANSFERASE,ALT 19 U/L (12-78); ALBUMIN 3.9 g/dL (3.4-5.0); ALKALINE PHOSPHATASE 78 U/L (46-116); ASPARTATE AMNIOTRANSFERASE,AST 16 U/L (15-37); BLOOD UREA NITROGEN,BUN 6 mg/dL (7-18); CALCIUM 9.1 mg/dL (8.5-10.1); CARBON DIOXIDE,CO2 29 mmol/L (21-32); CHLORIDE,CL 98 mmol/L (100-108); CREATININE 0.7 mg/dL (0.8-1.3); EST CRCL DRUG DOSING (CG) 104.94 mL/min; ESTIMATED GFR 110 mL/min (>60); GLUCOSE RANDOM 204 mg/dL (74-106); POTASSIUM,K 4.2 mmol/L (3.6-5.2); PROTEIN TOTAL,TP 7.7 g/dL (6.4-8.2); SODIUM,NA 137 mmol/L (140-148)
[2022-09-10 14:58] LABS: ANION GAP 14.2 mmol/L (5.0-14.0)
[2022-09-10 15:04] LABS: AMORPHOUS SEDIMENT,URINE NOT SEEN; BACTERIA,URINE NOT SEEN; EPITHELIAL CELLS,URINE NOT SEEN; MUCUS,URINE NOT SEEN; RBC,URINE 0-5 (0-5); WBC,URINE 0-5 (0-5)
[2022-09-10 15:12] LABS: AMPHETAMINES SCREEN, URINE NEGATIVE (NEGATIVE); BARBITURATE SCREEN,URINE NEGATIVE (NEGATIVE); BENZODIAZEPINES SCREEN,URINE PRESUMPTIVE POSITIVE (NEGATIVE); METHADONE SCREEN, URINE NEGATIVE (NEGATIVE); METHAMPHETAMINES SCREEN, URINE NEGATIVE (NEGATIVE); OXYCODONE SCREEN,URINE NEGATIVE (NEGATIVE); PROPOXYPHENE SCREEN,URINE NEGATIVE (NEGATIVE); THC SCREEN,URINE 50 NG/ML NEGATIVE (NEGATIVE)
== END 2022-09-10 15:47 | disposition home or self-care (01) ==
LOC: JP.ED 13:13
DX: F41.9 Anxiety disorder, unspecified (principal); G47.00 Insomnia, unspecified; E78.00 Pure hypercholesterolemia, unspecified; I10 Essential (primary) hypertension; E11.9 Type 2 diabetes mellitus without complications; E66.9 Obesity, unspecified; Z68.34 Body mass index [BMI] 34.0-34.9, adult; Z79.899 Other long term (current) drug therapy
CPT/HCPCS: 36415; 80053; 80305-QW; 80307; 81001; 84443; 85025; 99284

== ENCOUNTER 2023-05-15 10:17 | Emergency (ER) | payer MEDICARE ==
[2023-05-15 10:43] LABS: APPEARANCE,URINE CLEAR (CLEAR); BILIRUBIN,URINE NEGATIVE (NEGATIVE); COLOR,URINE YELLOW (YELLOW); GLUCOSE,URINE 500 mg/dL (NEGATIVE); KETONES,URINE NEGATIVE (NEGATIVE); LEUKOCYTE ESTERASE,URINE NEGATIVE (NEGATIVE); NITRITE,URINE NEGATIVE (NEGATIVE); OCCULT BLOOD,URINE MODERATE (NEGATIVE); PH,URINE 6.5 (5.0-8.0); PROTEIN,URINE >=300 mg/dL (NEGATIVE)
[2023-05-15 11:02] LABS: AMORPHOUS SEDIMENT,URINE NOT SEEN; BACTERIA,URINE NOT SEEN; EPITHELIAL CELLS,URINE FEW; MUCUS,URINE NOT SEEN; RBC,URINE 30-40 (0-5); WBC,URINE 0-5 (0-5)
[2023-05-15 11:36] LABS: BASOPHILS ABSOLUTE AUTO 0.04 K/uL (0.00-0.10); BASOPHILS PERCENT AUTO 0.3 % (0.1-1.3); EOSINOPHILS PERCENT AUTO 1.9 % (0.0-5.4); HEMATOCRIT 39.4 % (38.4-49.7); HEMOGLOBIN 14.7 g/dL (12.9-16.9); IMMATURE GRAN ABSOLUTE AUTO 0.17 K/uL (0.00-0.23); IMMATURE GRAN PERCENT AUTO 1.1 % (0.0-0.7); LYMPHOCYTES ABSOLUTE AUTO 2.91 K/uL (0.8-3.3); LYMPHOCYTES PERCENT AUTO 18.3 % (11.4-47.7); MEAN CORPUSCULAR HEMOGLOBIN 31.1 pg (31.6-35.5); MEAN CORPUSCULAR HGB CONC 37.3 g/dL (31.6-35.5); MEAN CORPUSCULAR VOLUME 83.3 fL (81.4-99.0); MONOCYTES ABSOLUTE AUTO 1.83 K/uL (0.20-0.90); MONOCYTES PERCENT AUTO 11.5 % (3.3-12.6); NEUTROPHILS ABSOLUTE AUTO 10.69 K/uL (1.0-7.6); NEUTROPHILS PERCENT AUTO 66.9 % (40.0-78.1); PLATELET COUNT,PLT 219 K/uL (130-375); RED BLOOD CELL COUNT 4.73 M/uL (4.14-5.76); WHITE BLOOD CELL COUNT,WBC 15.9 K/uL (3.2-11.0)
[2023-05-15 12:01] LABS: A/G RATIO 1.1 (1.2-2.2); ALANINE AMINOTRANSFERASE,ALT 13 U/L (12-78); ALBUMIN 3.6 g/dL (3.4-5.0); ALKALINE PHOSPHATASE 61 U/L (46-116); ASPARTATE AMNIOTRANSFERASE,AST 15 U/L (15-37); BLOOD UREA NITROGEN,BUN 10 mg/dL (7-18); C-REACTIVE PROTEIN 1.46 mg/dL (<0.50); CALCIUM 8.4 mg/dL (8.5-10.1); CARBON DIOXIDE,CO2 30 mmol/L (21-32); CHLORIDE,CL 100 mmol/L (100-108); CREATINE KINASE,CK 170 U/L (39-308); CREATININE 0.7 mg/dL (0.8-1.3); EST CRCL DRUG DOSING (CG) 99.84 mL/min; ESTIMATED GFR 109 mL/min (>60); GLUCOSE RANDOM 143 mg/dL (74-106); POTASSIUM,K 4.3 mmol/L (3.6-5.2); PROTEIN TOTAL,TP 6.8 g/dL (6.4-8.2); SODIUM,NA 137 mmol/L (140-148)
[2023-05-15 12:15] LABS: ANION GAP 11.3 mmol/L (5.0-14.0)
[2023-05-15 12:18] VITALS: BP 107/61; PULSE 88
[2023-05-15] MEDS ORDERED: Iopamidol 612 MG/ML 100 ML Bottle IV ONE (12:39)
[2023-05-15] MEDS ORDERED: Sodium Chloride 0.9% 100 ML IV ONE (12:39)
[2023-05-15] MEDS ORDERED: Sodium Chloride 0.9% 10 ML Syringe FLUSH PRN (13:41)
[2023-05-15] MEDS: Iopamidol 612 MG/ML 100 ML Bottle IV PRN (13:47)
[2023-05-15] MEDS: Sodium Chloride 0.9% 80 ML IV ONE (13:47)
[2023-05-15] MEDS: Sodium Chloride 0.9% 10 ML Syringe FLUSH ONE (13:49)
== END 2023-05-15 14:45 | disposition home or self-care (01) ==
LOC: JP.ED 10:17
DX: N30.90 Cystitis, unspecified without hematuria (principal); R31.0 Gross hematuria; R80.9 Proteinuria, unspecified; E11.9 Type 2 diabetes mellitus without complications; K59.00 Constipation, unspecified; I10 Essential (primary) hypertension; E78.00 Pure hypercholesterolemia, unspecified; F17.290 Nicotine dependence, other tobacco product, uncomplicated; E66.9 Obesity, unspecified; Z68.34 Body mass index [BMI] 34.0-34.9, adult; Z88.6 Allergy status to analgesic agent; Z88.8 Allergy status to other drugs, medicaments and biological substances; Z79.899 Other long term (current) drug therapy
CPT/HCPCS: 36415; 51798; 74177; 80053; 81001; 82550; 85025; 86140; 87086; 99284; J3490; Q9967